=== PATIENT | female | born 1965 | race African-American/Black ===

== ENCOUNTER 2024-07-10 20:04 | Inpatient (IN) | payer OTHER ==
[2024-07-10 20:38] VITALS: BMI 31.3
[2024-07-10] MEDS ORDERED: ONDANSETRON *ODT* 4 MG TABLET SL PRN (21:13)
[2024-07-10] MEDS ORDERED: LOPERAMIDE HCL 2 MG CAPSULE PO PRN (21:13)
[2024-07-10] MEDS ORDERED: BENZONATATE 200 MG CAPSULE PO PRN (21:13)
[2024-07-10] MEDS ORDERED: DICYCLOMINE HCL 10 MG CAPSULE PO PRN (21:13)
[2024-07-10] MEDS ORDERED: NICOTINE POLACRILEX 4 MG GUM BUC PRN (21:13)
[2024-07-10] MEDS ORDERED: NALOXONE (NARCAN) HCL 4 MG/0.1 ML SPRAY NS PRN (21:13)
[2024-07-10] MEDS ORDERED: MAGNESIUM HYDROX 2400MG/30ML ORAL SUSPENSION 30 ML CUP PO PRN (21:13)
[2024-07-10] MEDS ORDERED: BENZOCAINE/MENTHOL (CHLORASEPTIC ) LOZENGE MM PRN (21:13)
[2024-07-10] MEDS ORDERED: ACETAMINOPHEN 325 MG TABLET (FP) PO PRN (21:13)
[2024-07-10] MEDS ORDERED: IBUPROFEN 600 MG TABLET (FP) PO PRN (21:13)
[2024-07-10] MEDS ORDERED: MAG HYDROX/AL HYDROX/SIMETH 30 ML UNIT-DOSE CUP PO PRN (21:13)
[2024-07-10] MEDS ORDERED: BISMUTH SUBSALICYLATE 524 MG/30 ML PO PRN (21:13)
[2024-07-10] MEDS ORDERED: POLYETHYLENE GLYCOL (HEALTHYLAX) 3350 17 GM PACKET PO PRN (21:13)
[2024-07-10] MEDS ORDERED: IBUPROFEN 400 MG TABLET (FP) PO PRN (21:13)
[2024-07-10] MEDS ORDERED: guaiFENesin 600 MG TABLET.ER (FP) PO PRN (21:13)
[2024-07-10] MEDS: THIAMINE 100 MG TABLET PO SCH (22:13)
[2024-07-10] MEDS: MELATONIN 5 MG TABLETS PO SCH (22:13)
[2024-07-10] MEDS: levETIRAcetam 500 MG TABLET (FP) PO SCH (22:13)
[2024-07-11] MEDS: hydrOXYzine PAMOATE 25 MG CAPSULE (FP) PO PRN (05:50)
[2024-07-11 09:00] VITALS: BP 114/82; PULSE 100; RESP 16; TEMP 96.9
[2024-07-11 09:42] LABS: HEMATOCRIT 44.9 % (34.1-44.9); HEMOGLOBIN 13.5 g/dL (11.2-15.7); MCHC 30.1 g/dl (32.2-35.5); MEAN CELL VOLUME 92.8 fl (79.4-94.8); MEAN PLT VOLUME 10.9 fl (9.4-12.3); PLATELET COUNT 231 x10^3/uL (182-369); RDW 14.5 % (12.3-16.6)
[2024-07-11] MEDS: PRENATAL VITAMINS W/ FOLIC ACID TABLET (FP) PO SCH (09:44)
[2024-07-11] MEDS: NICOTINE 14 MG/24 HOURS TOPICAL PATCH TD SCH (09:44)
[2024-07-11 10:23] LABS: CHLORIDE 108 mmol/L (98-107); POTASSIUM 4.2 mmol/L (3.5-5.1); SODIUM 140 mmol/L (136-145)
[2024-07-11 10:28] LABS: CREATININE 0.8 mg/dL (0.55-1.3); SGOT/AST 18 U/L (15-37); SGPT/ALT 17 U/L (13-61)
[2024-07-11 10:30] LABS: BILIRUBIN,TOTAL 0.5 mg/dL (0.2-1)
[2024-07-11 10:31] LABS: ALK PHOS 88 U/L (45-117)
[2024-07-11 11:36] LABS: BLOOD UREA NITROGEN 12.4 mg/dL (7-18); CALCIUM 9.4 mg/dL (8.5-10.1)
[2024-07-11 11:38] LABS: ALBUMIN 3.8 g/dl (3.4-5.0); GLUCOSE,RANDOM 64 mg/dL (74-106)
[2024-07-11 11:57] LABS: ANION GAP 9 mmol/L (4-13); CO2 24 mmol/L (21-32)
== END 2024-07-11 11:15 | disposition home or self-care (01) | DRG 775 ==
LOC: YASAS 20:04 → Y3N 21:25
PROVIDERS: ADMIT Allergy & Immunology; ATTEND Allergy & Immunology
PROC: HZ2ZZZZ Detoxification Services for Substance Abuse Treatment (ICD-10-PCS; principal; 2024-07-10)
DX: F10.20 Alcohol dependence, uncomplicated (principal); F12.10 Cannabis abuse, uncomplicated; F17.210 Nicotine dependence, cigarettes, uncomplicated; F41.9 Anxiety disorder, unspecified; F32.A Depression, unspecified; J44.9 Chronic obstructive pulmonary disease, unspecified; K21.9 Gastro-esophageal reflux disease without esophagitis; R73.03 Prediabetes; Z88.0 Allergy status to penicillin; Z88.8 Allergy status to other drugs, medicaments and biological substances
CPT/HCPCS: 36415; 80053; 80305; 80307; 82962; 85027; 86780; 93005; 93010